=== PATIENT | female | born 1965 | race Caucasian/White ===

== ENCOUNTER 2016-10-29 10:43 | Emergency (ER) | payer BC ==
--- NOTE | 2016-11-04 15:15 | ER ---
ADMIT: 10/29/2016 RM/LOC: ER [facility] MR#: [id number] [place], [place] [id number] YULIYA SAUCEDO [address] [place] [address] Emergency Room Report SEX: F AGE: 50 : 1965 DATE: 10/29/2016 ADDENDUM: This patient comes to the ER because she has had pain in her back for the last week. She stated that it has gotten increasingly worse so bad today that she was unable to get out of bed. She did see a physical therapist last week for sciatic pain, but this is in her low back. She denies any injury. The worst pain is getting in and out of sitting position. She feels more comfortable when she is sitting still. On physical exam, her pain is in her lower lumbar spine. I am able to reproduce the pain with palpation. She has difficulty getting in and out of sitting position. DIAGNOSIS: Lower lumbar strain. IV of normal saline was started. She was given Valium 1 mg of Dilaudid and given Toradol. Her urinalysis was normal. I wrote a prescription for Valium and meloxicam. We will have her use heat, follow up with her doctor for an MRI if needed. Please see my T-sheet. DEMETRI Anna / Yair Cox MD / ivánl JOB #: [id number] CC: Yair Cox MD, Attending Physician
== END 2016-10-29 15:12 | disposition home or self-care (01) ==
LOC: ER 10:43
DX: S39.012A Strain of muscle, fascia and tendon of lower back, initial encounter (principal); E03.9 Hypothyroidism, unspecified; Z79.899 Other long term (current) drug therapy; Z88.5 Allergy status to narcotic agent; Z88.6 Allergy status to analgesic agent; X58.XXXA Exposure to other specified factors, initial encounter